=== PATIENT | female | born 1930 | race Caucasian/White ===

== ENCOUNTER 2017-10-12 14:30 | Inpatient (IN) | payer MEDICARE, OTHER ==
[2017-10-12] VITALS (7 sets, daily range): BP systolic 113–134; BP diastolic 57–72; PULSE 84–124; RESP 23–40; TEMP 97.5–97.8; O2SAT 95–98
[~2017-10-12] VITALS: Ht 160 cm; Wt 68.4 kg
[~2017-10-12 14:30] MED LIST: CARV6.25 PO; HYDR12.56 PO; LISI-515 PO; PRAV40TA2 PO
[2017-10-12] MEDS ORDERED: BISACODYL 10 MG SUPP RECTAL PRN (15:00)
[2017-10-12] MEDS ORDERED: MAGNESIUM HYDROXIDE SUSP 30 ML CUP PO PRN (15:00)
[2017-10-12] MEDS ORDERED: ACETAMINOPHEN 325 MG TAB PO PRN (15:00)
[2017-10-12] MEDS ORDERED: NALOXONE HCL 0.4 MG/ML AMP IV PUSH PRN (15:00)
[2017-10-12] MEDS ORDERED: SENNOSIDES 8.6 MG TAB PO PRN (15:00)
[2017-10-12] MEDS ORDERED: ONDANSETRON HCL 4 MG/2 ML VIAL IVP PRN (15:00)
[2017-10-12] MEDS ORDERED: SODIUM CHLORIDE 0.9% FLUSH 10 ML FLUSH IV FLUSH PRN (15:00)
--- NOTE | 2017-10-12 15:10 | HHI.HP ---
[facility]PI Service [facility] Primary [facility] Physician Non-Staff Admission Diagnosis Cold/Flu Symptoms Diagnoses: (1) Acute bronchitis (2) COPD exacerbation Chief Complaint: Productive cough Travel History International Travel<30 Days: No Contact w/Intl Traveler <30 Da: No Traveled to Known Affected Are: No Sepsis Criteria SIRS Criteria (2 or more): Heart rate over 90, WBC > 34374, < 4000 or > 10% bands History of Present Illness This is a pleasant 87-year-old female patient with a known medical history of hypertension, CAD with cardiac stent placement, COPD and atrial fibrillation who presented to the ED with complaints of persistent productive cough with yellow phlegm. Patient states she visited her primary care doctor roughly a month ago, was given antibiotics and sent home stating that she feels little relief from symptoms of productive cough generalized weakness, body aches and nasal congestion. Denies any recent steroid use. She states that the symptoms have persisted and possibly even gotten worse. She does require 2 L nasal cannula at night at home. Director Of Professional Services is Dr. Mae. Ct Technologist is Dr. lOmos. Denies any recent fever, chills, chest pain, abdominal pain, nausea, vomiting, diarrhea or dysuria. Upon presentation chest x-ray shows mild to moderate diffuse interstitial infiltrates of both lungs. No lobular consolidation seen. White blood cell count 19,000. On 2 L nasal cannula. Was given IV steroid, duo nebs and Levaquin in the ED. Review of Systems Constitutional: DENIES: Fatigue, Fever, Chills Eyes: DENIES: Blurred vision, Diplopia Respiratory: COMPLAINS OF: Cough, Sputum production, Shortness of breath Cardiovascular: DENIES: Chest pain, Palpitations Gastrointestinal: DENIES: Abdominal pain, Black stools, Bloody stools, Constipation, Diarrhea, Nausea, Vomiting Musculoskeletal: DENIES: Joint pain Psychiatric: DENIES: Anxiety Except as stated in HPI: all other systems reviewed are Neg Past Family Social History Past Medical History Hypertension Hyperlipidemia CAD COPD Atrial fibrillation Past Surgical History Cardiac stents Pacemaker Reported Medications Active Reported Hydrochlorothiazide 12.5 Mg Tab 12.5 Mg PO DAILY Pravastatin 40 Mg Tab 40 Mg PO DAILY Lisinopril 20 Mg Tab 20 Mg PO DAILY Coreg (Carvedilol) 6.25 Mg Tab 6.25 Mg PO BID Allergies: Coded Allergies: No Known Allergies (Unverified , 10/12/17) Active Ordered Medications Current Medications Medications (Trade) Dose Ordered Sig/Johnathon Route Start Time Stop Time Status Last Admin (NS Flush) 2 ml UNSCH PRN IV FLUSH 10/12/17 15:00 (NS Flush) 2 ml BID IV FLUSH 10/12/17 21:00 (Tylenol) 650 mg Q4H PRN PO 10/12/17 15:00 (Zofran Inj) 4 mg Q6H PRN IVP 10/12/17 15:00 (Heparin Inj) 5,000 units Q12H SQ 10/12/17 16:00 (Narcan Inj) 0.4 mg UNSCH PRN IV PUSH 10/12/17 15:00 (Dory-Colace) 1 tab BID PO 10/12/17 21:00 (Milk Of Doctoliblynn Liq) 30 ml Q12H PRN PO 10/12/17 15:00 (Senokot) 17.2 mg Q12H PRN PO 10/12/17 15:00 (Dulcolax Supp) 10 mg DAILY PRN RECTAL 10/12/17 15:00 (Pneumovax-23 Inj) 25 mcg ONCE ONCE IM 10/13/17 10:00 10/13/17 10:01 Family History Denies any significant family medical history. Social History Denies any tobacco, alcohol or illicit drug use. Physical Exam Vital Signs Vital Signs Date Time Temp Pulse Resp B/P (MAP) Pulse Ox O2 Delivery O2 Flow Rate FiO2 10/12/17 15:04 96 Nasal Cannula 2.00 Physical Exam GENERAL: Well-developed, elderly female patient in NAD. On 2 L nasal cannula. SKIN: Warm and dry. No rash. HEAD: Normocephalic. Atraumatic. EYES: Pupils equal and round. No scleral icterus. No injection or drainage. ENT: No nasal bleeding or discharge. Mucous membranes pink and moist. NECK: Supple. Trachea midline. CARDIOVASCULAR: Paced rhythm. No murmur appreciated. RESPIRATORY: No accessory muscle use. Expiratory rhonchi and posterior lobes throughout. Breath sounds equal bilaterally. GASTROINTESTINAL: Abdomen soft, non-tender, nondistended. Normoactive bowel sounds x4. MUSCULOSKELETAL: No obvious deformities. Extremities without clubbing, cyanosis , or edema. NEUROLOGICAL: Awake and alert. No obvious cranial nerve deficits. Motor grossly within normal limits. 5/5 muscle strength in bilateral upper and lower extremities. Normal speech. PSYCHIATRIC: Appropriate mood and affect; insight and judgment normal. Imaging Chest X-Ray 10/12/17 0914 Signed Impressions: Service Date/Time: Thursday, October 12, 2017 09:37 - CONCLUSION: Mild to moderate diffuse interstitial infiltrates of both lungs, age-indeterminate but probably nonacute. No lobar consolidation seen. Costa Breen MD Septic Shock Reassessment Septic shock perfusion: reassessment completed Caprini VTE Risk Assessment Caprini VTE Risk Assessment: Mod/High Risk (score >= 2) Caprini Risk Assessment Model Point Value = 1 Point Value = 2 Point Value = 3 Point Value = 5 Age 41-60 Minor surgery BMI > 25 kg/m2 Swollen legs Varicose veins or History of unexplained or recurrent spontaneous Oral contraceptives or hormone replacement Sepsis (< 1 month) Serious lung disease, including pneumonia (< 1 month) Abnormal pulmonary function Acute myocardial infarction Congestive heart failure (< 1 month) History of inflammatory bowel disease Medical patient at bed rest Age 61-74 Arthroscopic surgery Major open surgery (> 45 min) Laparoscopic surgery (> 45 min) Malignancy Confined to bed (> 72 hours) Immobilizing plaster cast Central venous access Age >= 75 History of VTE Family history of VTE Factor V Leiden Prothrombin [id number] Lupus anticoagulant Anticardiolipin antibodies Elevated serum homocysteine Heparin-induced thrombocytopenia Other congenital or acquired thrombophilia Stroke (< 1 month) Elective arthroplasty Hip, pelvis, or leg fracture Acute spinal cord injury (< 1 month) Prophylaxis Regimen Total Risk Factor Score Risk Level Prophylaxis Regimen 0-1 Low Early ambulation 2 Moderate Order ONE of the following: *Sequential Compression Device (SCD) *Heparin 5000 units SQ BID 3-4 Higher Order ONE of the following medications: *Heparin 5000 units SQ TID *Enoxaparin/Lovenox 40 mg SQ daily (WT < 150 kg, CrCl > 30 mL/min) *Enoxaparin/Lovenox 30 mg SQ daily (WT < 150 kg, CrCl > 10-29 mL/min) *Enoxaparin/Lovenox 30 mg SQ BID (WT < 150 kg, CrCl > 30 mL/min) AND/OR *Sequential Compression Device (SCD) 5 or more Highest Order ONE of the following medications: *Heparin 5000 units SQ TID (Preferred with Epidurals) *Enoxaparin/Lovenox 40 mg SQ daily (WT < 150 kg, CrCl > 30 mL/min) *Enoxaparin/Lovenox 30 mg SQ daily (WT < 150 kg, CrCl > 10-29 mL/min) *Enoxaparin/Lovenox 30 mg SQ BID (WT < 150 kg, CrCl > 30 mL/min) AND *Sequential Compression Device (SCD) Assessment and Plan Problem List: (1) Acute bronchitis ICD Code: J20.9 - Acute bronchitis, unspecified (2) COPD exacerbation ICD Code: J44.1 - Chronic obstructive pulmonary disease with (acute) exacerbation Assessment and Plan This is a pleasant 87-year-old female patient with a known medical history of hypertension, CAD with cardiac stent placement, COPD and atrial fibrillation who presented to the ED with complaints of persistent productive cough with yellow phlegm. Acute Bronchitis COPD in possible exacerbation Failed outpatient therapy - Patient admits to finishing course of Z-felisha 1 month ago without relief of symptoms. - Chest x-ray reviewed showing mild to moderate diffuse interstitial infiltrates of both lungs. No lobar consolidation. WBC 19.2. Monitor CBC. Influenza negative. Afebrile. Will check lactic acid/UA. BC pending, follow growth. - Received IV steroids, duo nebs and antibiotics in ED. Continue Levaquin. Continue scheduled steroids. Duo nebs scheduled and as needed. - Supplemental O2 as needed. Patient's baseline, uses 2 L nasal cannula at night at home. - Continue on cardiac telemetry, patient has pacemaker. Monitor for any arrhythmias. - Supportive care. Hypertension, chronic: Continue home mediations. Monitor BP trends. Atrial fibrillation, chronic: Patient only takes aspirin at home. Refuses any further anticoagulation. 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 Has pacemaker. Continue cardiac telemetry. Hyperlipidemia, chronic: Continue home statin. DVT prophylaxis: SCDs. Heparin. Full code. Code Status Full code Discussed Condition With Patient and son. Physician Certification 2 Midnight Certification Type: Admission for Inpatient Services Order for Inpatient Services The services are ordered in accordance with Medicare regulations or non- Medicare payer requirements, as applicable. In the case of services not specified as inpatient-only, they are appropriately provided as inpatient services in accordance with the 2-midnight benchmark. Estimated LOS (days): 3 3 days is the estimated time the patient will need to remain in the hospital, assuming treatment plan goals are met and no additional complications. Post-Hospital Plan: Not yet determined Deepali Cuevas Oct 12, 2017 15:10
[2017-10-12] MEDS ORDERED: ASPI-516 CHEW (15:22)
[2017-10-12] MEDS ORDERED: RESP: ALBUTEROL 2.5 MG/IPRATROPIUM 0.5 MG NEB (PRN) NEB (15:45)
[2017-10-12] MEDS: HEPARIN SODIUM - SQ 10,000 UNITS/ML VIAL SQ SCH (16:00)
[2017-10-12] MEDS: methylPREDNISolone SOD SUCC 40 MG/1 ML VIAL IV PUSH SCH (17:46)
[2017-10-12 19:42] LABS: BILIRUBIN, URINE NEG (NEG); BLOOD, URINE TRACE (NEG); GLUCOSE,URINE 1000 OR GREATER mg/dL (NEG); KETONE, URINE TRACE mg/dL (NEG); NITRITE,URINE NEG (NEG); URINE COLOR YELLOW (YELLW/STRAW); URINE LEUKOCYTE ESTERASE NEG (NEG)
[2017-10-12 19:57] LABS: RBC, URINE 0-3 /hpf (0-3); SQUAMOUS EPITHELIAL CELL URINE 0-5 /hpf (0-5)
[2017-10-12] MEDS: RESP: ALBUTEROL 2.5 MG/IPRATROPIUM 0.5 MG NEB (SCH) NEB (19:57)
[2017-10-12] MEDS: CARVEDILOL 6.25 MG TAB PO SCH (20:17)
[2017-10-12] MEDS: SODIUM CHLORIDE 0.9% FLUSH 10 ML FLUSH IV FLUSH SCH (20:17)
[2017-10-12] MEDS: DOCUSATE SODIUM 50 MG/SENNA 8.6 MG TAB PO SCH (20:17)
[2017-10-12] MEDS: FAMOTIDINE 20 MG TAB PO SCH (21:41)
[2017-10-13] VITALS: BP 114/56; PULSE 88; RESP 29; TEMP 97.6; O2SAT 98
[2017-10-13] MEDS: methylPREDNISolone SOD SUCC 40 MG/1 ML VIAL IV PUSH SCH ×2 (01:02→07:25)
[2017-10-13] MEDS: HEPARIN SODIUM - SQ 10,000 UNITS/ML VIAL SQ SCH (01:05)
[2017-10-13 04:00] VITALS: BP 123/66; PULSE 70; RESP 29; TEMP 97.8; O2SAT 96
[2017-10-13 05:32] LABS: AUTOMATED NEUTROPHIL # 15.3 TH/MM3 (1.8-7.7); BASOPHIL % 0.2 % (0.0-2.0); EOSINOPHIL % 0.1 % (0.0-4.0); HEMATOCRIT 35.6 % (35.0-46.0); HEMOGLOBIN 11.3 GM/DL (11.6-15.3); LYMPH % 10.3 % (9.0-44.0); LYMPHOCYTE # 1.8 TH/MM3 (1.0-4.8); MEAN CELL VOLUME 84.3 FL (80.0-100.0); MEAN CORPUSCULAR HEMOGLOBIN 26.6 PG (27.0-34.0); MEAN CORPUSCULAR HGB CONC 31.6 % (32.0-36.0); MEAN PLATELET VOLUME 8.8 FL (7.0-11.0); MONO % 1.6 % (0.0-8.0); MONOCYTE # 0.3 TH/MM3 (0-0.9); NEUT % 87.8 % (16.0-70.0); PLATELET COUNT 254 TH/MM3 (150-450); RED BLOOD COUNT 4.22 MIL/MM3 (4.00-5.30); RED CELL DISTRIBUTION WIDTH 17.5 % (11.6-17.2); WHITE BLOOD COUNT 17.4 TH/MM3 (4.0-11.0)
[2017-10-13 05:54] LABS: BICARBONATE 23.9 MEQ/L (21.0-32.0); CALCIUM 8.8 MG/DL (8.5-10.1)
[2017-10-13 05:58] LABS: CREATININE 0.85 MG/DL (0.50-1.00)
[2017-10-13 07:28] VITALS: O2SAT 98
[2017-10-13] MEDS: RESP: ALBUTEROL 2.5 MG/IPRATROPIUM 0.5 MG NEB (SCH) NEB (07:28)
[2017-10-13 07:31] VITALS: BP 179/68; PULSE 76; RESP 39; O2SAT 98
[2017-10-13 08:00] VITALS: BP 140/72; PULSE 82; RESP 49; TEMP 97.6; O2SAT 96
[2017-10-13] MEDS ORDERED: HYDROCHLOROTHIAZIDE 12.5 MG CAP PO SCH (09:00)
[2017-10-13] MEDS ORDERED: LISINOPRIL 20 MG TAB PO SCH (09:00)
[2017-10-13] MEDS ORDERED: PRAVASTATIN SOD 40 MG TAB PO SCH (09:00)
[2017-10-13] MEDS ORDERED: ASPIRIN 81 MG CHEW TAB CHEW SCH (09:00)
[2017-10-13] MEDS: CARVEDILOL 6.25 MG TAB PO SCH (09:01)
[2017-10-13] MEDS: FAMOTIDINE 20 MG TAB PO SCH (09:01)
[2017-10-13] MEDS: DOCUSATE SODIUM 50 MG/SENNA 8.6 MG TAB PO SCH (09:02)
[2017-10-13] MEDS: SODIUM CHLORIDE 0.9% FLUSH 10 ML FLUSH IV FLUSH SCH (09:02)
--- NOTE | 2017-10-13 09:21 | HHI.PR ---
Subjective Remarks Follow-up acute bronchitis and COPD exacerbation. Patient seen and examined, sitting up in bed comfortably in no apparent distress. On 2 L nasal cannula, this is patient's baseline at home. Denies any dyspnea. Has been eating well denies any abdominal pain, nausea or vomiting. Denies any pain. Vital signs are stable overnight. Patient worked with PT today with no recommendations for home health. Afebrile overnight. Blood cultures negative. Objective Vitals Vital Signs Date Time Temp Pulse Resp B/P (MAP) Pulse Ox O2 Delivery O2 Flow Rate FiO2 10/13/17 08:00 97.6 82 49 140/72 (94) 96 10/13/17 08:00 82 10/13/17 07:31 76 39 179/68 (105) 98 10/13/17 07:28 98 Nasal Cannula 2.00 10/13/17 04:00 70 10/13/17 04:00 97.8 70 29 123/66 (85) 96 10/13/17 00:00 88 10/13/17 00:00 97.6 88 29 114/56 (75) 98 10/12/17 20:00 84 10/12/17 20:00 97.5 84 40 134/57 (82) 95 10/12/17 19:57 98 Nasal Cannula 2.00 10/12/17 18:00 84 10/12/17 16:00 97.7 84 23 125/60 (81) 98 10/12/17 16:00 102 10/12/17 15:04 96 Nasal Cannula 2.00 10/12/17 15:00 97.8 84 30 113/72 (86) 96 10/12/17 14:42 124 I/O 10/12/17 10/12/17 10/12/17 10/13/17 10/13/17 10/13/17 07:00 15:00 23:00 07:00 15:00 23:00 Intake Total 480 ml 480 ml Output Total 300 ml 700 ml Balance 180 ml -220 ml Intake Oral 480 ml 480 ml Output Urine Total 300 ml 700 ml # Bowel Movements 0 Result Diagram: 10/13/170 10/13/17439 Imaging Chest X-Ray 10/12/1714 Signed Impressions: Service Date/Time: Thursday, October 12, 2017 09:37 - CONCLUSION: Mild to moderate diffuse interstitial infiltrates of both lungs, age-indeterminate but probably nonacute. No lobar consolidation seen. Costa Breen MD Objective Remarks GENERAL: Well-developed, elderly female patient in NAD. On 2 L nasal cannula. SKIN: Warm and dry. No rash. HEAD: Normocephalic. Atraumatic. EYES: Pupils equal and round. No scleral icterus. No injection or drainage. ENT: No nasal bleeding or discharge. Mucous membranes pink and moist. NECK: Supple. Trachea midline. CARDIOVASCULAR: Paced rhythm. No murmur appreciated. RESPIRATORY: No accessory muscle use. No wheezing noted. Breath sounds equal bilaterally. GASTROINTESTINAL: Abdomen soft, non-tender, nondistended. Normoactive bowel sounds x4. MUSCULOSKELETAL: No obvious deformities. Extremities without clubbing, cyanosis , or edema. NEUROLOGICAL: Awake and alert. No obvious cranial nerve deficits. Motor grossly within normal limits. 5/5 muscle strength in bilateral upper and lower extremities. Normal speech. PSYCHIATRIC: Appropriate mood and affect; insight and judgment normal. A/P Problem List: (1) Acute bronchitis ICD Code: J20.9 - Acute bronchitis, unspecified (2) COPD exacerbation ICD Code: J44.1 - Chronic obstructive pulmonary disease with (acute) exacerbation (3) Pneumonia ICD Code: J18.9 - Pneumonia, unspecified organism Assessment and Plan This is a pleasant 87-year-old female patient with a known medical history of hypertension, CAD with cardiac stent placement, COPD and atrial fibrillation who presented to the ED with complaints of persistent productive cough with yellow phlegm. Acute Bronchitis with possible pneumonia and failed outpatient antibiotic therapy. COPD with exacerbation - Patient admits to finishing course of Z-felisha 1 month ago without relief of symptoms. - Chest x-ray reviewed showing mild to moderate diffuse interstitial infiltrates of both lungs. No lobar consolidation. WBC 19.2 now 17 today, also on steroids. Influenza negative. Afebrile. Lactic acid 1.2. UA negative. BC no growth x 1 day. - Patient had clinically improved. Wheezing improved with IV steroids and ABX. - Received IV steroids, duo nebs and antibiotics in ED. Continue Levaquin upon discharge to complete dose. Will taper steroids upon discharge. - Supplemental O2 as needed. Patient's baseline, uses 2 L nasal cannula at night at home. - Continue on cardiac telemetry, patient has pacemaker. No arrhythmias overnight. - Supportive care. Hypertension, chronic: Continue home mediations. Monitor BP trends. Controlled. Atrial fibrillation, chronic: Patient only takes aspirin at home. Refuses any further anticoagulation. 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 Has pacemaker. Continue cardiac telemetry. Hyperlipidemia, chronic: Continue home statin. DVT prophylaxis: SCDs. Heparin. Full code. Discharge Planning DC home today on antibiotics and steroid taper. Follow-up PCP upon discharge. Deepali Cuevas Oct 13, 2017 09:21
[2017-10-13] MEDS ORDERED: PNEUMOCOCCAL POLYVALENT INJ 25 MCG/0.5 ML SYR IM ONE (10:00)
[2017-10-13] MEDS ORDERED: LEVOFLOXACIN 750 MG TAB PO SCH (11:00)
[2017-10-13 12:00] VITALS: BP 134/58; PULSE 90; RESP 22; TEMP 98.1; O2SAT 95
--- NOTE | 2017-10-13 12:22 | HHI.DCPOC ---
Discharge Care Plan Diagnosis: (1) Acute bronchitis (2) COPD exacerbation Goals to Promote Your Health * To prevent worsening of your condition and complications * To maintain your health at the optimal level Directions to Meet Your Goals Take your medications as prescribed Follow your dietary instruction Follow activity as directed Keep your appointments as scheduled Take your immunizations and boosters as scheduled If your symptoms worsen call your PCP, if no PCP go to Urgent Care Center or Emergency Room Smoking is Dangerous to Your Health. Avoid second hand smoke Call the 24-hour hour crisis hotline for domestic abuse at Deepali Cuevas Oct 13, 2017 12:22
[2017-10-13] MEDS ORDERED: LEVA750T9 PO (12:30)
[2017-10-13] MEDS ORDERED: PRED10PA PO (12:30)
[2017-10-13] MEDS ORDERED: FAMO20TA2 PO (12:30)
[2017-10-13] MEDS ORDERED: methylPREDNISolone SOD SUCC 40 MG/1 ML VIAL IV PUSH SCH (21:00)
== END 2017-10-13 14:26 | disposition home or self-care (01) | DRG 202 ==
LOC: PHEDDLT 14:30 → PHEDA 14:31 → PHICU 14:49
PROVIDERS: ADMIT Hospitalist; ATTEND Hospitalist
DX: J20.9 Acute bronchitis, unspecified (principal); J44.0 Chronic obstructive pulmonary disease with (acute) lower respiratory infection; I48.2 Chronic atrial fibrillation; J44.1 Chronic obstructive pulmonary disease with (acute) exacerbation; I10 Essential (primary) hypertension; I25.10 Atherosclerotic heart disease of native coronary artery without angina pectoris; Z95.5 Presence of coronary angioplasty implant and graft; Z95.0 Presence of cardiac pacemaker; Z79.82 Long term (current) use of aspirin; E78.5 Hyperlipidemia, unspecified
CPT/HCPCS: 71046; 80048; 80053; 81001; 83605; 85025; 87040; 87804; 94640; 94664; 96361; 96365; 96375; J1956; J2920; J2930; J7040